=== PATIENT | female | born 1970 | race African-American/Black ===

== ENCOUNTER 2017-06-05 11:06 | Outpatient (CLI) | payer OTHER ==
--- NOTE | 2017-06-06 07:59 | Mammography Report ---
BILATERAL MAMMOGRAM: FINDINGS: The breast tissue is extremely dense (>75% glandular). This may lower the sensitivity of mammography. No mass, distortion, suspicious calcification, or skin change is seen. No significant change is identified when compared to prior exams in 2016. The left breast cyst diagnosed at that time may be smaller or absent. CAD was utilized. IMPRESSION: Negative mammogram. There is no mammographic evidence of malignancy. RECOMMENDATION: Follow-up per ACS guidelines. Consider periodic screening ultrasound due to the extreme density of this patient's pattern. BI-RADS CATEGORY: 1 = Negative ACR BI-RADS MAMMOGRAPHIC CODES: 0 = Needs additional imaging evaluation; 1 = Negative; 2 = Benign; 3 = Probably benign; 4 = Suspicious; 5 = Malignant; 6 = Known biopsy-proven malignancy COMMENT: 1. Dense breast tissue, i.e., adenosis, fibrocystic changes, etc., may obscure an underlying neoplasm. 2. Approximately 10% of cancers are not detected with mammography. 3. A negative mammography report should not delay biopsy if a clinically suspicious mass is present. COMMENT: Patient follow-up letters are generated in [facility].
--- NOTE | 2017-06-06 09:56 | Ultrasound Report ---
TRANSABDOMINAL AND TRANSVAGINAL PELVIC ULTRASOUND: 06/05/17 11:06:00 CLINICAL: Enlarged uterus. FINDINGS: Transabdominal and transvaginal pelvic ultrasound demonstrated a normal uterus measuring 7.8 x 3.9 x 6.0 cm.The endometrium is normal and measures 5.4 mm AP thickness. Normal right ovary with a dominant 1.5 cm follicle. The right ovary measures 2.5 x 1.4 x 2.3cm. normal left ovary with a dominant 1.5 cm follicle. The left ovary measures 3.3 x 2.0 x 3.2cm. No adnexal mass. Mild physiologic free fluid. Normal urinary bladder. IMPRESSION: 1. Normal uterus with no fibroid or mass. 2. Normal ovaries. 3. No pelvic mass.
== END 2017-06-05 11:07 | disposition home or self-care (01) ==
LOC: SPVWC 11:06
PROVIDERS: ATTEND Physician Assistant Medical
DX: Z12.31 Encounter for screening mammogram for malignant neoplasm of breast (principal); N85.2 Hypertrophy of uterus
CPT/HCPCS: 76830; 76856; 77067